=== PATIENT | female | born 1975 | race Caucasian/White ===

== ENCOUNTER 2024-04-12 13:57 | Emergency (ER) | payer OTHER ==
[~2024-04-12] VITALS: Ht 157.5 cm; Wt 118.2 kg
[~2024-04-12 13:57] MED LIST: ENAL-90 PO; [UNRECOGNIZED DRUG - CODE] PO
[2024-04-12] MEDS ORDERED: HYDR25TA2 PO (14:03)
[2024-04-12 15:24] VITALS: BP 126/78; PULSE 60; RESP 18; TEMP 98.3
[2024-04-12] MEDS: DOXYCYCLINE HYCLATE 100 MG TABLET PO ONE (15:54)
[2024-04-12] MEDS: CEPHALEXIN MONOHYDRATE 250 MG CAPSULE PO ONE (15:54)
[2024-04-12] MEDS ORDERED: DOXY-354 PO (15:59)
[2024-04-12] MEDS ORDERED: CEPH-556 PO (15:59)
== END 2024-04-12 15:54 | disposition home or self-care (01) ==
LOC: EMS 13:57
DX: L01.00 Impetigo, unspecified (principal); I10 Essential (primary) hypertension; Z98.890 Other specified postprocedural states
CPT/HCPCS: 99283